=== PATIENT | female | born 1990 | race Two or more races ===

== ENCOUNTER 2019-02-06 15:00 | Inpatient (IN) | payer OTHER ==
[~2019-02-06] VITALS: Ht 160 cm; Wt 88.5 kg
[2019-02-08] MEDS ORDERED: PRENATAL TABLE1 EAC1 PO (12:29)
== END 2019-02-10 17:19 | disposition home or self-care (01) | DRG 807 ==
LOC: OB/GYN 15:00 → LDR 02-08 11:03 → OB/GYN 02-08 11:03
PROVIDERS: ADMIT Specialist
PROC: 10E0XZZ Delivery of Products of Conception, External Approach (ICD-10-PCS; principal; 2019-02-08)
PROC: 0W8NXZZ Division of Female Perineum, External Approach (ICD-10-PCS; 2019-02-08)
PROC: 3E033VJ Introduction of Other Hormone into Peripheral Vein, Percutaneous Approach (ICD-10-PCS; 2019-02-08)
PROC: 4A1HXCZ Monitoring of Products of Conception, Cardiac Rate, External Approach (ICD-10-PCS; 2019-02-08)
DX: O80 Encounter for full-term uncomplicated delivery (principal); Z37.0 Single live birth; Z3A.40 40 weeks gestation of pregnancy; Z22.330 Carrier of Group B streptococcus

== ENCOUNTER 2021-09-12 07:37 | Inpatient (IN) | payer OTHER ==
[~2021-09-12] VITALS: Ht 160 cm; Wt 95.3 kg
[~2021-09-12 07:37] MED LIST: PRENATAL TABLE1 EAC1 PO
[2021-09-14] MEDS ORDERED: COLACE100 MG PO (09:21)
[2021-09-14] MEDS ORDERED: IBU600 MG PO (09:21)
[2021-09-14] MEDS ORDERED: SIMETHICONE125 M1 PO (09:23)
== END 2021-09-14 12:42 | disposition home or self-care (01) | DRG 807 ==
LOC: LDR 07:37 → OB/GYN 07:37
PROVIDERS: ADMIT Specialist; ATTEND Specialist
PROC: 10E0XZZ Delivery of Products of Conception, External Approach (ICD-10-PCS; principal; 2021-09-12)
PROC: 0W8NXZZ Division of Female Perineum, External Approach (ICD-10-PCS; 2021-09-12)
PROC: 4A1HXFZ Monitoring of Products of Conception, Cardiac Rhythm, External Approach (ICD-10-PCS; 2021-09-12)
PROC: 3E033VJ Introduction of Other Hormone into Peripheral Vein, Percutaneous Approach (ICD-10-PCS; 2021-09-12)
PROC: 10907ZC Drainage of Amniotic Fluid, Therapeutic from Products of Conception, Via Natural or Artificial Opening (ICD-10-PCS; 2021-09-12)
DX: O80 Encounter for full-term uncomplicated delivery (principal); Z37.0 Single live birth; Z3A.40 40 weeks gestation of pregnancy